=== PATIENT | male | born 1975 | race Caucasian/White ===

== ENCOUNTER 2022-09-05 01:36 | Emergency (ER) | payer MEDICARE, OTHER ==
[~2022-09-05] VITALS: Ht 182.9 cm; Wt 77.1 kg
[2022-09-05 02:20] VITALS: BP 121/74
[2022-09-05] MEDS ORDERED: SULF1TAB48 PO (02:27)
[2022-09-05] MEDS ORDERED: CEPH500T PO (02:27)
[2022-09-05] MEDS ORDERED: SULFAMETH/TRIMETH 800/160 MG 1 UDTAB TABLET PO ONE (02:30)
[2022-09-05] MEDS ORDERED: CEPHALEXIN MONOHYDRATE 500 MG CAPSULE PO ONE ×2 (02:30→02:34)
--- NOTE | 2022-09-05 02:33 | NUR ---
BIBGF FROM HOME W CC OF MULTIPLE SKIN LESIONS ON RIGHT WRIST, HAND AND BILATERAL LEGS. PATIENT CLAIMED HE IS A [employer] AND DOES CANNABIS EVERY DAY, PLACED COMFORTABLY IN RM 19
[2022-09-05] MEDS ORDERED: SULFAMETH/TRIMETH 800/160 MG 1 UDTAB TABLET ONE (02:34)
--- NOTE | 2022-09-05 02:34 | NUR ---
SEEN BY DR PERRY WITH ORDERS
--- NOTE | 2022-09-05 02:36 | NUR ---
Patient discharged to home in stable condition. Written and verbal after care instructions given. Patient verbalizes understanding of instruction.
== END 2022-09-05 02:37 | disposition home or self-care (01) ==
LOC: ER 01:38
DX: S61.402A Unspecified open wound of left hand, initial encounter (principal); S61.401A Unspecified open wound of right hand, initial encounter; S81.802A Unspecified open wound, left lower leg, initial encounter; S81.801A Unspecified open wound, right lower leg, initial encounter; F15.90 Other stimulant use, unspecified, uncomplicated; X58.XXXA Exposure to other specified factors, initial encounter; Y93.89 Activity, other specified; Y92.89 Other specified places as the place of occurrence of the external cause; Y99.8 Other external cause status

== ENCOUNTER 2023-09-16 18:35 | Emergency (ER) | payer MEDICARE, OTHER ==
[~2023-09-16] VITALS: Ht 170.2 cm; Wt 67.6 kg
[~2023-09-16 18:35] MED LIST: CEPH500T PO; SULF1TAB48 PO
[2023-09-16 18:50] VITALS: BP 126/67; TEMP 98.8
[2023-09-16] MEDS ORDERED: CLIN300C12 PO (19:27)
[2023-09-16] MEDS ORDERED: CLINDAMYCIN HCL 150 MG CAPSULE ONE (19:34)
[2023-09-16] MEDS: CLINDAMYCIN HCL 150 MG CAPSULE PO ONE (19:36)
[2023-09-16 19:37] VITALS: O2SAT 98
== END 2023-09-16 19:41 | disposition home or self-care (01) ==
LOC: ER 18:38
DX: L03.116 Cellulitis of left lower limb (principal); F19.10 Other psychoactive substance abuse, uncomplicated